=== PATIENT | male | born 1935 | race Caucasian/White ===

== ENCOUNTER → 2016-05-31 | Day surgery (SDC) | payer MEDICARE ==
[~2016-05-31] VITALS: Ht 180.3 cm; Wt 119.3 kg
[~2016-05-31] MED LIST: ACETAMINOPHEN/HYDROcodone 325 MG/5 MG TAB PO PRN; ADVA500A INH; ALLO300T2 PO; ALPR.25 PO; BUPIVACAINE/EPINEPHRINE 0.5% PF 30 ML VIAL ONE; CITA10TA4 PO; CYAN1TAB24 PO; D31000TA PO; DO NOT ADM ANY ANTICOAGULANT DRUGS XX PRN; FAMOTIDINE 20 MG/2 ML VIAL ONE; FENO50TA PO; HEPARIN SODIUM - IV 10,000 UNITS/10 ML VIAL ONE; HEPARIN SODIUM - SQ 10,000 UNITS/ML VIAL ONE; INSULIN HUMAN REGULAR 1,000 UNITS/10 ML VIAL SQ PRN; IOHEXOL 300 MG/ML 50 ML BTL (for RAD DIAG) OTHER ONE; LACTATED RINGER'S 1000 ML IV SCH; METOPROLOL TARTRATE 25 MG TAB PO PRN; MIDAZOLAM HCL 2 MG/2 ML VIAL ONE; MULTTAB23 PO; OXYC1TAB63 PO; PROPOFOL 200 MG/20 ML AMP IV ONE; PROS5TAB PO; PROTAMINE SULFATE 50 MG/5 ML VIAL ONE; ROSU20 PO; SODIUM CHLORID 0.9% 500 ML IV SCH; SYNT175T PO; VALS1TAB64 PO; WARF-21 PO; WARF-22 PO; WARF-23 PO; ceFAZolin 1,000 MG/NS 100 ML IV SCH
[2016-05-31 09:01] VITALS: BP 151/77; PULSE 68; RESP 20; TEMP 98.1; O2SAT 99
[2016-05-31 09:35] LABS: AUTOMATED NEUTROPHIL # 3.1 TH/MM3 (1.8-7.7); BASOPHIL % 0.5 % (0.0-2.0); EOSINOPHIL # 0.1 TH/MM3 (0-0.4); EOSINOPHIL % 1.2 % (0.0-4.0); HEMATOCRIT 39.5 % (39.0-51.0); HEMO FLAGS DIFF FINAL; LYMPH % 23.7 % (9.0-44.0); LYMPHOCYTE # 1.2 TH/MM3 (1.0-4.8); MEAN CELL VOLUME 88.6 FL (80.0-100.0); MEAN CORPUSCULAR HEMOGLOBIN 31.5 PG (27.0-34.0); MEAN CORPUSCULAR HGB CONC 35.5 % (32.0-36.0); MONO % 9.9 % (0.0-8.0); NEUT % 64.7 % (16.0-70.0); PLATELET COUNT 161 TH/MM3 (150-450); RED BLOOD COUNT 4.46 MIL/MM3 (4.50-5.90); RED CELL DISTRIBUTION WIDTH 13.7 % (11.6-17.2); WHITE BLOOD COUNT 4.9 TH/MM3 (4.0-11.0)
[2016-05-31 10:33] LABS: APTT (PATIENT) 26.7 SEC (24.3-30.1); INTERNATIONAL NORMALIZED RATIO 1.2 RATIO; PROTHROMBIN TIME - PATIENT 12.8 SEC (9.8-11.6)
[2016-05-31 10:35] LABS: BICARBONATE 25.3 MEQ/L (21.0-32.0); POTASSIUM 3.9 MEQ/L (3.5-5.1)
[2016-05-31 16:35] VITALS: BP 168/79; PULSE 74; RESP 18; TEMP 98.5; O2SAT 100
--- NOTE | 2016-06-01 07:56 | EKG ---
Date Performed: 05/31/2016 Time Performed: 09:01:50 PTAGE: 81 years EKG: SUPRAVENTRICULAR RHYTHM NONSPECIFIC T-WAVE ABNORMALITY BORDERLINE ECG Compared to PREVIOUS TRACING , the sinus arrhythmia and PACs have resolved and the patient is now in a regular Sinus rhythm . The anteroseptal T-wave changes have improved. PREVIOUS TRACIN03/13/2008 17.18 DOCTOR: Patit Fields Interpretating Date/Time 06/01/2016 07:55:47
--- NOTE | 2016-06-03 13:08 | MP ---
cc: LISBET MEHTA DATE OF SURGERY 05/31/2016 PREOPERATIVE DIAGNOSIS Left popliteal arterial aneurysm. CT angiogram April 2016 did not adequately visualize anatomy - specifically left tibial runoff. He needed contrast angiogram to more thoroughly assess anatomy preparatory to planned popliteal aneurysm repair. POSTOPERATIVE DIAGNOSIS Left popliteal arterial aneurysm. CT angiogram April 2016 did not adequately visualize anatomy - specifically left tibial runoff. He needed contrast angiogram to more thoroughly assess anatomy preparatory to planned popliteal aneurysm repair. PROCEDURE Selective left femoral-popliteal tibial arteriogram. SURGEON Lisbet Mehta MD [employer] SALESPERSON GONZALES Fletcher ANESTHESIA Local MAC DESCRIPTION OF THE OPERATIVE PROCEDURE With the patient in the supine position and under IV sedation, the lower abdomen, both groins and thighs were thoroughly prepped with Betadine and draped in a sterile fashion. The skin and subcutaneous tissues surrounding the proposed left common femoral access site was preemptively infiltrated with 0.5% Marcaine with epinephrine. Utilizing ultrasound guidance, an 18 gauge needle was inserted into the left mid common femoral lumen, antegrade approach. A J-wire was advanced under fluoroscopic guidance into the proximal SFA. A 5-Czech hemostatic sheath was deployed over the J-wire. Diluted contrast was injected through the sheath side-arm in conjunction with digital C-arm fluoroscopic imaging. This confirmed a widely patent common femoral, proximal profunda and SFA. The popliteal was widely patent throughout as well. Aneurysmal enlargement within the above-knee popliteal was confirmed, consistent with CT findings. Contrast flow pooled within the popliteal aneurysm delaying flow beyond. An advantage guidewire quick-cross catheter was negotiated to the popliteal level. Selective below-knee popliteal and tibial runoff films were obtained. This revealed widely patent below-knee popliteal which was concentrically calcified. Uninterrupted two-vessel runoff to the left foot via the anterior and posterior tibial arteries was maintained and flow within the plantar arch and tarsal arteries appeared uninterrupted. The 5-Czech sheath was removed and hemostasis achieved with compression. There were no operative complications. The patient returned to the recovery room in stable condition having tolerated the procedure well. MD TOMAS Serrato/ZANA /8:09 AM /1:02 PM
== END | disposition home or self-care (01) ==
LOC: HCVO 08:19
PROVIDERS: ATTEND Surgery Vascular Surgery
DX: I72.4 Aneurysm of artery of lower extremity (principal); I48.0 Paroxysmal atrial fibrillation; I10 Essential (primary) hypertension; E78.5 Hyperlipidemia, unspecified; E78.00 Pure hypercholesterolemia, unspecified; J44.9 Chronic obstructive pulmonary disease, unspecified
CPT/HCPCS: 01916; 36246; 75710; 80048; 85025; 85610; 85730; 86850; 86900; 86901; 93005; J0690; J1644; J2250; J3010; J7120; Q9967; J2720

== ENCOUNTER 2016-07-19 09:30 | Observation (INO) | payer MEDICARE ==
[2016-07-19] VITALS (11 sets, daily range): BP systolic 119–158; BP diastolic 57–79; PULSE 59–80; RESP 17–20; TEMP 97.5–98.2; O2SAT 91–95
[~2016-07-19] VITALS: Ht 180.3 cm; Wt 119.6 kg
[~2016-07-19 09:30] MED LIST changes: -ACETAMINOPHEN/HYDROcodone 325 MG/5 MG TAB PO PRN; +BUPIVACAINE/EPINEPHRINE 0.5% 50 ML VIAL ONE; -BUPIVACAINE/EPINEPHRINE 0.5% PF 30 ML VIAL ONE; -DO NOT ADM ANY ANTICOAGULANT DRUGS XX PRN; -FAMOTIDINE 20 MG/2 ML VIAL ONE; -HEPARIN SODIUM - SQ 10,000 UNITS/ML VIAL ONE; -INSULIN HUMAN REGULAR 1,000 UNITS/10 ML VIAL SQ PRN; -IOHEXOL 300 MG/ML 50 ML BTL (for RAD DIAG) OTHER ONE; -LACTATED RINGER'S 1000 ML IV SCH; -METOPROLOL TARTRATE 25 MG TAB PO PRN; -MIDAZOLAM HCL 2 MG/2 ML VIAL ONE; -PROPOFOL 200 MG/20 ML AMP IV ONE; -PROTAMINE SULFATE 50 MG/5 ML VIAL ONE; -SODIUM CHLORID 0.9% 500 ML IV SCH; -WARF-21 PO; -WARF-22 PO; -ceFAZolin 1,000 MG/NS 100 ML IV SCH
[2016-07-19 10:12] LABS: AUTOMATED NEUTROPHIL # 2.9 TH/MM3 (1.8-7.7); BASOPHIL % 0.4 % (0.0-2.0); EOSINOPHIL # 0.1 TH/MM3 (0-0.4); EOSINOPHIL % 1.2 % (0.0-4.0); HEMATOCRIT 40.9 % (39.0-51.0); HEMO FLAGS DIFF FINAL; LYMPH % 32.7 % (9.0-44.0); LYMPHOCYTE # 1.6 TH/MM3 (1.0-4.8); MEAN CELL VOLUME 88.4 FL (80.0-100.0); MEAN CORPUSCULAR HEMOGLOBIN 30.5 PG (27.0-34.0); MEAN CORPUSCULAR HGB CONC 34.5 % (32.0-36.0); MONO % 7.6 % (0.0-8.0); NEUT % 58.1 % (16.0-70.0); PLATELET COUNT 167 TH/MM3 (150-450); RED BLOOD COUNT 4.63 MIL/MM3 (4.50-5.90); RED CELL DISTRIBUTION WIDTH 13.8 % (11.6-17.2)
[2016-07-19] MEDS ORDERED: CHLORHEXIDINE GLUCONATE 2 % 1 PACK (2 CLOTHS) TOPICAL PRN (10:15)
[2016-07-19] MEDS ORDERED: SODIUM CHLORID 0.9% 500 ML IV PRN (10:15)
[2016-07-19] MEDS ORDERED: METOPROLOL TARTRATE 25 MG TAB PO PRN (10:15)
[2016-07-19] MEDS ORDERED: LACTATED RINGER'S 1000 ML IV PRN (10:15)
[2016-07-19] MEDS ORDERED: ceFAZolin 1,000 MG/NS 100 ML IV SCH ×2 (10:15)
[2016-07-19] MEDS ORDERED: POVIDONE IODINE 5% (ANTISEPSIS KIT) 4 APPLICATIONS EACH NARE PRN (10:15)
[2016-07-19] MEDS ORDERED: INSULIN HUMAN REGULAR 1,000 UNITS/10 ML VIAL SQ PRN (10:15)
[2016-07-19 10:20] LABS: APTT (PATIENT) 26.8 SEC (24.3-30.1); INTERNATIONAL NORMALIZED RATIO 1.2 RATIO; PROTHROMBIN TIME - PATIENT 13.1 SEC (9.8-11.6)
[2016-07-19 10:29] LABS: BICARBONATE 24.7 MEQ/L (21.0-32.0); POTASSIUM 3.6 MEQ/L (3.5-5.1)
[2016-07-19] MEDS ORDERED: MIDAZOLAM HCL 2 MG/2 ML VIAL ONE (11:00)
[2016-07-19] MEDS ORDERED: FAMOTIDINE 20 MG/2 ML VIAL ONE (11:00)
[2016-07-19] MEDS ORDERED: ACETAMINOPHEN 1000 MG/100 ML VIAL IV ONE (11:00)
[2016-07-19] MEDS ORDERED: HEPARIN SODIUM - IV 10,000 UNITS/10 ML VIAL OTHER ONE (11:15)
[2016-07-19] MEDS ORDERED: BUPIVACAINE/EPINEPHRINE 0.5% PF 30 ML VIAL INFIL ONE (11:15)
[2016-07-19] MEDS ORDERED: IOHEXOL 350 MG/ML 50 ML BTL (for RAD DIAG) OTHER ONE (11:15)
[2016-07-19] MEDS ORDERED: ePHEDrine/NS 25 MG/5 ML SYR IV ONE (12:49)
[2016-07-19] MEDS ORDERED: ONDANSETRON HCL 4 MG/2 ML VIAL IV PUSH ONE (12:49)
[2016-07-19] MEDS ORDERED: SODIUM CHLORID 0.9% 500 ML INJ 500 ML IV ONE (12:49)
[2016-07-19] MEDS ORDERED: PROPOFOL 200 MG/20 ML AMP IV ONE (12:49)
[2016-07-19] MEDS ORDERED: fentaNYL CITRATE 250 MCG/5 ML AMP ONE (13:21)
[2016-07-19] MEDS ORDERED: DO NOT ADM ANY ANTICOAGULANT DRUGS PRN (13:30)
[2016-07-19] MEDS ORDERED: D5-1/2 NS + KCL 20 MEQ INJ 1,000 ML ONE (13:42)
[2016-07-19] MEDS: ENOXAPARIN SODIUM 30 MG/0.3 ML SYRINGE SQ SCH (14:00)
[2016-07-19] MEDS ORDERED: hydrALAZINE HCL 20 MG/ML VIAL IV PRN (14:15)
[2016-07-19] MEDS ORDERED: CLOPIDOGREL 300 MG TAB PO ONE (14:15)
[2016-07-19] MEDS ORDERED: SODIUM CHLORIDE 0.9% FLUSH 10 ML FLUSH IV FLUSH PRN (14:15)
[2016-07-19] MEDS ORDERED: D5 IV SCH (14:15)
[2016-07-19] MEDS ORDERED: MORPHINE SULFATE 4 MG/ML INJ IV PRN (14:15)
[2016-07-19] MEDS ORDERED: ONDANSETRON HCL 4 MG/2 ML VIAL IV PUSH PRN (14:15)
[2016-07-19] MEDS ORDERED: 1/2 NS IV SCH (14:15)
[2016-07-19] MEDS ORDERED: KCL IV SCH (14:15)
[2016-07-19] MEDS ORDERED: ATROPINE SULFATE 1 MG/ML VIAL IV PUSH ONE (14:15)
[2016-07-19] MEDS ORDERED: ALPRAZolam 0.25 MG TAB PO PRN (14:30)
[2016-07-19] MEDS ORDERED: BUDESONIDE-FORMOTEROL 160/4.5 MCG INHALER INH PRN (14:30)
[2016-07-19] MEDS ORDERED: PILL SPLITTER OTHER PRN (14:30)
[2016-07-19] MEDS ORDERED: ATORVASTATIN 40 MG TAB PO SCH (21:00)
[2016-07-20] VITALS (16 sets, daily range): BP systolic 115–158; BP diastolic 68–79; PULSE 36–100; RESP 17–20; TEMP 97.4–98; O2SAT 92–96
[2016-07-20] MEDS: ENOXAPARIN SODIUM 30 MG/0.3 ML SYRINGE SQ SCH (01:51)
[2016-07-20] MEDS ORDERED: LEVOTHYROXINE SODIUM 100 MCG TAB PO SCH (06:00)
[2016-07-20] MEDS ORDERED: LEVOTHYROXINE SODIUM 75 MCG TAB PO SCH (06:00)
[2016-07-20] MEDS ORDERED: VALSARTAN 80 MG TAB PO SCH (09:00)
[2016-07-20] MEDS ORDERED: CITALOPRAM HYDROBROMIDE 20 MG TAB PO SCH (09:00)
[2016-07-20] MEDS ORDERED: CHOLECALCIFEROL (VIT D3) 1000 UNIT TAB PO SCH (09:00)
[2016-07-20] MEDS ORDERED: FINASTERIDE 5 MG TAB PO SCH (09:00)
[2016-07-20] MEDS ORDERED: ASPIRIN EC 81 MG TABEC PO SCH (09:00)
[2016-07-20] MEDS ORDERED: CLOPIDOGREL 75 MG TAB PO SCH (09:00)
[2016-07-20] MEDS ORDERED: ALLOPURINOL 300 MG TAB PO SCH (09:00)
[2016-07-20] MEDS ORDERED: FENOFIBRATE 145 MG TAB PO SCH (09:00)
[2016-07-20] MEDS ORDERED: WARF-21 PO (13:49)
[2016-07-20] MEDS ORDERED: WARF-22 PO (13:49)
--- NOTE | 2016-07-26 09:53 | MP ---
cc: GUANAKITO ARTHUR M.D., JAMES T. M.D. LASTARZA, MARK W. 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 OPERATIVE PROCEDURE Left popliteal endovascular aneurysm repair, percutaneous. SURGEON Konrad Mehta MD STERILIZATION TECH Selvin Montelongo MD DESCRIPTION OF OPERATIVE PROCEDURE With the patient in the supine position and under IV sedation the lower abdomen, both groins and thighs were prepped with Betadine and draped in sterile fashion. One gram of Ancef was administered prophylactically. Following a protocol time-out, the skin and subcutaneous tissue surrounding the proposed left common femoral access site was preemptively infiltrated with 0.5% Marcaine with epinephrine. Utilizing ultrasound guidance, an 18-gauge needle was inserted into the left mid-common femoral lumen, antegrade approach. A J-wire was advanced under fluoroscopic guidance into the proximal and superficial femoral artery. The 18-gauge needle was exchanged for a 5-[place] hemostatic sheath. Initial angiogram was accomplished with diluted contrast injected through the sheath side-arm in conjunction with digital C-arm fluoroscopic imaging. This reconfirmed the arterial anatomy. In addition to the known 4.2 cm diameter bilobed popliteal aneurysm, high-grade stenoses were defined within the SFA proximal to the upper aneurysmal component and within the popliteal just distal to the lower aneurysmal component. The aneurysms were confined to the popliteal at the above-knee level. An Advantage Guidewire Quick-Cross catheter combination was navigated across the popliteal aneurysm into the distal posterior tibial. The Advantage wire was exchanged for a 0.018 Extra-Support wire parked within the distal posterior tibial. A [place] Viabahn 6 x 250-mm endoprosthesis was deployed across the popliteal aneurysm extending from the SFA just above the adductor level down to the popliteal immediately proximal to the knee joint level. The Viabahn graft was postdilated with a 6 x 200-mm balloon, two separate inflations. It should be noted that prior to the endoprosthetic placement, the patient was systemically heparinized with 5000 units and ACT measured 250s. Completion angiogram revealed appropriate deployment with no technical defects and wide patency at the two previous stenotic areas. Minor flow occurred retrograde from the distal edge of the graft into the popliteal aneurysmal segment, technically a distal Type 1 endoleak. Rather than placing an additional Endograft across the knee joint level, I decided to treat the retrograde leak expectantly. Hopefully with reversal of anticoagulation and time the endoleak will resolve. If not, we can treat it later with ultrasound-guided thrombosis of the popliteal aneurysm sac. Heparin was not reversed. The 5-[place] sheath which had been upgraded to a 7-sheath was removed and hemostasis achieved with a Perclose device. At the conclusion of the procedure pedal pulses remained palpable. The patient returned to the recovery room in stable condition having tolerated the procedure well. Ilia Mehta MD JTS/SSB /11:09 AM /9:44 AM
== END 2016-07-20 14:35 | disposition home or self-care (01) ==
LOC: HSDC 09:30 → HCIN 15:21
PROVIDERS: ADMIT Surgery Vascular Surgery; ATTEND Surgery Vascular Surgery
DX: I72.4 Aneurysm of artery of lower extremity (principal); E78.5 Hyperlipidemia, unspecified; I25.10 Atherosclerotic heart disease of native coronary artery without angina pectoris; E66.9 Obesity, unspecified; I12.9 Hypertensive chronic kidney disease with stage 1 through stage 4 chronic kidney disease, or unspecified chronic kidney disease; N18.9 Chronic kidney disease, unspecified; F41.9 Anxiety disorder, unspecified; J44.9 Chronic obstructive pulmonary disease, unspecified; Z99.81 Dependence on supplemental oxygen; Z87.891 Personal history of nicotine dependence; Z68.36 Body mass index [BMI] 36.0-36.9, adult
CPT/HCPCS: 36140; 37799; 75710; 80048; 85025; 85610; 85730; 86850; 86900; 86901; C1725; C1769; C1874; G0378; J0131; J0690; J1644; J1650; J2250; J2405; J3010; J3480; J7040; J7120; Q9967